=== PATIENT | female | born 1990 | race Caucasian/White ===

== ENCOUNTER 2018-02-25 17:51 | Emergency (ER) | payer SELFPAY ==
[2018-02-25] MEDS ORDERED: NS 1,000 ML IV ONE (18:15)
[2018-02-25] MEDS ORDERED: ONDANSETRON 4 MG/2 ML VIAL IVP ONE (18:16)
[2018-02-25 18:21] LABS: PLATELET COUNT 283 10^3/uL (150-400)
--- NOTE | 2018-02-25 18:30 | EDPHY ---
H & P Time Seen by Provider: 02/25/18 18:30 HPI/ROS: CHIEF COMPLAINT: Intermittent nausea and vomiting for 2 weeks HISTORY OF PRESENT ILLNESS: Patient describes intermittent nausea and vomiting for the last 2-3 weeks. She will have symptoms for 2 days and then it will go way for 2 days and be on off. The last 1 was 2 days ago. It is worse in the morning or early afternoon and then better in the evening. Not associated with abdominal pain or headache or diarrhea or fever or chills. No recent travel. Denies vaginal bleeding or discharge or any urinary symptoms. REVIEW OF SYSTEMS: Eye: no change in vision ENT: no sore throat Cardiac: no chest pain or syncope Pulmonary: no cough or SOB Abdomen: HPI Musculoskeletal: no back pain Skin: no rash Neuro: Patient had a migraine headache a week ago which was typical for her but no headaches since. Constitutional: no fever : no urinary symptoms A comprehensive 10 point review of systems is otherwise negative aside from elements mentioned in the history of present illness. PAST MEDICAL HISTORY: Negative except for IUD, and migraine headaches Social history: Occasional alcohol but not regular. She has a twin who had sarcoma in her biceps General Appearance: Alert and conversant, cooperative. Eyes: No scleral icterus. ENT, Mouth: Normal mucous membranes. Respiratory: Normal respiratory effort, breath sounds equal, lungs are clear to auscultation. Cardiovascular: Regular rate and rhythm. Gastrointestinal: Abdomen is soft and non tender. Neurological: Alert, face symmetric, normal motor and sensory in extremities. Skin: Warm and dry, no rashes. Musculoskeletal: No peripheral edema. Psychiatric: Not agitated. Emergency Department course/MDM: IV fluids, labs to include CBC chemistry and test, urinalysis. 2007: labs discussed. She has been feeling better over the last 2 days. At this point I think it is reasonable to discharge her with Semaj RUSSELL, primary care referral. She says that her insurance will kick in in 2 weeks and she will be able to get primary care follow-up then. Differential discussed with her in detail including but not limited to gastrointestinal viral illness, , metabolic abnormality. She does not have morning headaches, I think intracranial mass is unlikely. Does not have surgical abdominal process on exam. Smoking Status: Light smoker Constitutional: Initial Vital Signs Temperature (C) 37.3 C 02/25/18 17:52 Heart Rate 90 02/25/18 17:52 Respiratory Rate 18 02/25/18 17:52 Blood Pressure 116/82 H 02/25/18 17:52 O2 Sat (%) 99 02/25/18 17:52 O2 Delivery Mode Room Air Allergies/Adverse Reactions: No Known Allergies Allergy (Unverified 02/25/18 17:52) Home Medications: Medication Instructions Recorded NK [No Known Home Meds] 02/25/18 Medical Decision Making - Data Points Laboratory Results: Laboratory Results 02/25/18 18:05 02/25/18 18:05 02/25/18 02/25/18 02/25/18 19:00 18:05 18:05 WBC RBC Hgb Hct MCV MCH MCHC RDW Plt Count MPV Neut % (Auto) Lymph % (Auto) [place] % (Auto) Eos % (Auto) Baso % (Auto) Nucleat RBC Rel Count Absolute Neuts (auto) Absolute Lymphs (auto) Absolute Monos (auto) Absolute Eos (auto) Absolute Basos (auto) Absolute Nucleated RBC Immature Gran % Immature Gran # Sodium 138 mEq/L mEq/L (135-145) Potassium 3.9 mEq/L mEq/L (3.3-5.0) Chloride 102 mEq/L mEq/L (97-110) Carbon Dioxide 26 mEq/l mEq/l (22-31) Anion Gap 10 mEq/L mEq/L (8-16) BUN 10 mg/dL mg/dL (7-23) Creatinine 0.8 mg/dL mg/dL (0.6-1.0) Estimated GFR > 60 Glucose 91 mg/dL mg/dL (70-100) Calcium 9.6 mg/dL mg/dL (8.5-10.4) Beta HCG, Qual NEGATIVE Urine Color PALE YELLOW Urine Appearance CLEAR Urine pH 6.0 (5.0-7.5) Ur Specific [place] 1.009 (1.002-1.030) Urine Protein NEGATIVE (NEGATIVE) Urine Ketones NEGATIVE (NEGATIVE) Urine Blood NEGATIVE (NEGATIVE) Urine Nitrate NEGATIVE (NEGATIVE) Urine Bilirubin NEGATIVE (NEGATIVE) Urine Urobilinogen NEGATIVE EU EU (0.2-1.0) Ur Leukocyte Esterase NEGATIVE (NEGATIVE) Urine Glucose NEGATIVE (NEGATIVE) 02/25/18 18:05 WBC 10.63 10^3/uL H 10^3/uL (3.80-9.50) RBC 4.84 10^6/uL 10^6/uL (4.18-5.33) Hgb 15.7 g/dL g/dL (12.6-16.3) Hct 46.7 % % (38.0-47.0) MCV 96.5 fL fL (81.5-99.8) MCH 32.4 pg pg (27.9-34.1) MCHC 33.6 g/dL g/dL (32.4-36.7) RDW 12.7 % % (11.5-15.2) Plt Count 283 10^3/uL 10^3/uL (150-400) MPV 8.5 fL L fL (8.7-11.7) Neut % (Auto) 74.7 % H % (39.3-74.2) Lymph % (Auto) 16.4 % % (15.0-45.0) [place] % (Auto) 7.4 % % (4.5-13.0) Eos % (Auto) 0.8 % % (0.6-7.6) Baso % (Auto) 0.3 % % (0.3-1.7) Nucleat RBC Rel Count 0.0 % % (0.0-0.2) Absolute Neuts (auto) 7.95 10^3/uL H 10^3/uL (1.70-6.50) Absolute Lymphs (auto) 1.74 10^3/uL 10^3/uL (1.00-3.00) Absolute Monos (auto) 0.79 10^3/uL 10^3/uL (0.30-0.80) Absolute Eos (auto) 0.08 10^3/uL 10^3/uL (0.03-0.40) Absolute Basos (auto) 0.03 10^3/uL 10^3/uL (0.02-0.10) Absolute Nucleated RBC 0.00 10^3/uL 10^3/uL (0-0.01) Immature Gran % 0.4 % % (0.0-1.1) Immature Gran # 0.04 10^3/uL 10^3/uL (0.00-0.10) Sodium Potassium Chloride Carbon Dioxide Anion Gap BUN Creatinine Estimated GFR Glucose Calcium Beta HCG, Qual Urine Color Urine Appearance Urine pH Ur Specific [place] Urine Protein Urine Ketones Urine Blood Urine Nitrate Urine Bilirubin Urine Urobilinogen Ur Leukocyte Esterase Urine Glucose Medications Given: Discontinued Medications Sodium Chloride (Ns) 1,000 mls @ 0 mls/hr IV ONCE ONE PRN Reason: Wide Open Stop: 02/25/18 18:16 Last Admin: 02/25/18 18:25 Dose: 1,000 mls Ondansetron HCl (Zofran) 4 mg IVP EDNOW ONE Stop: 02/25/18 18:17 Last Admin: 02/25/18 18:26 Dose: 4 mg Ondansetron HCl (Zofran Odt 4 Mg Prepack#2) 1 btl TAKEHOME EDNOW ONE Stop: 02/25/18 20:11 Last Admin: 02/25/18 20:30 Dose: 1 btl Departure - Departure Disposition: Home, Routine, Self-Care Clinical Impression: Nausea & vomiting Qualifiers: Vomiting type: unspecified Vomiting Intractability: non-intractable Qualified Code(s): R11.2 - Nausea with vomiting, unspecified Condition: Good Instructions: Ondansetron (By mouth), Acute Nausea and Vomiting (ED) Additional Instructions: Primary care referrals given. Normal electrolytes, negative test. Referrals: Veronica Payan MD [Medical Doctor] - As per Instructions Ashanti Bond MD [[facility] [place] Primary Care Provider] - As per Instructions Helga Jones MD [Medical Doctor] - As per Instructions
[2018-02-25] MEDS ORDERED: ONDANSETRON 4MG PREPACK#2 BTL TAKEHOME ONE (20:10)
[2018-02-25 20:30] VITALS: BP 124/101
== END 2018-02-25 20:33 | disposition home or self-care (01) ==
DX: R11.2 Nausea with vomiting, unspecified (principal); R53.83 Other fatigue
CPT/HCPCS: 96374